=== PATIENT | male | born 1950 | race Caucasian/White ===

== ENCOUNTER → 2024-07-03 | Outpatient (CLI) | payer OTHER | LOC: M RAD 14:04 | PROVIDERS: ATTEND Nurse Practitioner Family | DX: T79.2XXS Traumatic secondary and recurrent hemorrhage and seroma, sequela (principal) ==

== ENCOUNTER → 2024-07-18 | Outpatient (CLI) | payer OTHER | LOC: M RAD 10:53 | PROVIDERS: ATTEND Physician Assistant | DX: I83.813 Varicose veins of bilateral lower extremities with pain (principal) ==

== ENCOUNTER → 2024-07-26 | Outpatient (CLI) | payer OTHER ==
[~2024-07-26] MED LIST: LIDOCAINE 1% MDV 20ML VIAL As Ordered ONE; LIDOCAINE 1% MDV 20ML VIAL SC ONE; SODIUM CHLORIDE 0.9% 1000 ML XX ONE
[2024-07-26 10:05] VITALS: TEMP 96.2
[2024-07-26 10:46] VITALS: BP 128/58; O2SAT 98
== END ==
LOC: M IRPRO 09:52
PROVIDERS: ATTEND Surgery
DX: S30.0XXA Contusion of lower back and pelvis, initial encounter (principal); X58.XXXA Exposure to other specified factors, initial encounter; Y92.9 Unspecified place or not applicable

== ENCOUNTER → 2024-10-17 | Outpatient (CLI) | payer OTHER ==
[~2024-10-17] MED LIST changes: +ISOVUE-370 76% 100 ML VIAL As Ordered ONE; -LIDOCAINE 1% MDV 20ML VIAL As Ordered ONE; -LIDOCAINE 1% MDV 20ML VIAL SC ONE; -SODIUM CHLORIDE 0.9% 1000 ML XX ONE
== END ==
LOC: M RAD 14:42
PROVIDERS: ATTEND Surgery
DX: S70.02XD Contusion of left hip, subsequent encounter (principal); K57.30 Diverticulosis of large intestine without perforation or abscess without bleeding; M43.06 Spondylolysis, lumbar region; Y93.9 Activity, unspecified; Y92.9 Unspecified place or not applicable
CPT/HCPCS: 72193; Q9967